=== PATIENT | female | born 1960 | race Caucasian/White ===

== ENCOUNTER 2018-01-29 18:44 | Emergency (ER) | payer BC ==
[~2018-01-29] VITALS: Ht 154.9 cm; Wt 100.4 kg
[2018-01-29] MEDS ORDERED: TETANUS/DIPHTHERIA TOX ADULT 0.5 ML SYR IM ONE (19:45)
== END 2018-01-29 20:01 | disposition home or self-care (01) ==
LOC: FSED 18:44
DX: S61.210A Laceration without foreign body of right index finger without damage to nail, initial encounter (principal); W45.8XXA Other foreign body or object entering through skin, initial encounter; Y93.G3 Activity, cooking and baking; Y92.000 Kitchen of unspecified non-institutional (private) residence as the place of occurrence of the external cause